=== PATIENT | female | born 1965 | race American Indian/Alaskan Native ===

== ENCOUNTER 2020-07-30 08:49 | Emergency (ER) | payer BC, OTHER ==
[2020-07-30] MEDS ORDERED: Morphine 4 MG/ML Syringe IVPUSH ONE (09:06)
[2020-07-30] MEDS ORDERED: Sodium Chloride 0.9% 1,000 ML IV ONE (09:06)
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
[2020-07-30] MEDS ORDERED: Aspirin 325 MG Tab PO ONE (09:15)
[2020-07-30] MEDS ORDERED: Ondansetron 4 MG/2 ML SDV IVPUSH ONE (09:16)
[2020-07-30] MEDS ORDERED: Aspirin 81 MG Tab.Chew ONE (09:23)
[2020-07-30] MEDS ORDERED: Aspirin 81 MG Tab.Chew PO ONE (09:24)
[2020-07-30 09:37] LABS: BLOOD UREA NITROGEN,BUN 12 mg/dL (7.0-18.0); CARBON DIOXIDE,CO2 26.1 mmol/L (21.0-32.0); CHLORIDE,CL 105 mmol/L (98-107); GLUCOSE RANDOM 125 mg/dL (74-106); POTASSIUM,K 3.6 mmol/L (3.5-5.1); SODIUM,NA 139 mmol/L (136-145)
[2020-07-30] MEDS ORDERED: Iopamidol 755 MG/ML 500 ML Multipack Bottle IVPUSH ONE (10:08)
--- NOTE | 2020-07-30 10:49 | CR ---
INDICATION: Left-sided chest pain TECHNIQUE: Chest 2 views COMPARISON: 06/18/2008 FINDINGS: Cardiovascular and mediastinum: Heart size and vasculature are normal in caliber and appearance. Lungs and pleural spaces: Lungs are clear. No sign of infiltrate or mass. No sign of pleural effusion. No pneumothorax. Bones and soft tissues: No significant findings. IMPRESSION: No acute findings and no significant changes from the prior exam. Dictated by Kaushik Maya MD @ Jul 30 2020 10:46AM Signed by Dr. Kaushik Maya @ Jul 30 2020 10:48AM
--- NOTE | 2020-07-30 11:06 | CT ---
INDICATION: Right-sided facial swelling. TECHNIQUE: CT facial with 75 cc Isovue 370 IV contrast. COMPARISON: None FINDINGS: The right parotid gland appears slightly enlarged and edematous relative to the left parotid. Submandibular glands are incompletely imaged but appear symmetrical and normal. Few borderline to mildly enlarged lymph nodes. No fluid collections. Parapharyngeal soft tissues are normal. Orbits and globes are normal. IMPRESSION: Acute right-sided parotitis is suspected. Remainder of the exam is unremarkable. Please note that all CT scans at this facility use dose modulation, iterative reconstruction, and/or weight-based dosing when appropriate to reduce radiation dose to as low as reasonably achievable. Dictated by Kaushik Maya MD @ Jul 30 2020 10:59AM Signed by Dr. Kaushik Maya @ Jul 30 2020 11:05AM
--- NOTE | 2020-07-30 11:12 | CT ---
INDICATION: Right-sided facial swelling. TECHNIQUE: CT soft tissue of the neck was acquired with 75 cc Isovue 370 IV contrast. COMPARISON: None FINDINGS: Skull base: Unremarkable. Pharynx/Larynx/Trachea: Epiglottis is normal. Airway is patent. Adjacent soft tissues are normal. Salivary glands: There is asymmetric right parotid enlargement and swelling. Submandibular glands and left parotid gland are normal. Thyroid gland: There are small bilateral sub centimeter nodules. Lymph nodes: Few borderline to minimally enlarged lymph nodes. Vessels: Unremarkable for age. Bones: Unremarkable for age. Misc: No fluid collections. Lung apices: Unremarkable. IMPRESSION: Acute right-sided parotitis. No abscess or other significant finding. Please note that all CT scans at this facility use dose modulation, iterative reconstruction, and/or weight-based dosing when appropriate to reduce radiation dose to as low as reasonably achievable. Dictated by Kaushik Maya MD @ Jul 30 2020 11:05AM Signed by Dr. Kaushik Maya @ Jul 30 2020 11:10AM
== END 2020-07-30 12:05 | disposition home or self-care (01) ==
LOC: MW.ED 08:49
DX: K11.20 Sialoadenitis, unspecified (principal); I25.2 Old myocardial infarction; Z88.8 Allergy status to other drugs, medicaments and biological substances; Z79.899 Other long term (current) drug therapy
CPT/HCPCS: 36415; 70487; 70491; 71046; 80053; 82550; 83605; 84484; 85025; 86140; 93005; 96374; 96375; 99284; A9270; J2270; J2405; J7030; Q9967; 93010; 99283